=== PATIENT | female | born 1965 | race Caucasian/White ===

== ENCOUNTER 2023-09-28 12:34 | Observation (INO) | payer OTHER, SELFPAY ==
[2023-09-28] VITALS (12 sets, daily range): BP systolic 123–163; BP diastolic 64–94; PULSE 86–107; RESP 17–33; TEMP 35.6–37.6; O2SAT 86–93; BMI 25.8; BMI 30.9
--- NOTE | 2023-09-28 13:40 | CRLHL7_ITS ---
For Patients: As a result of the Cures Act, medical imaging exams and procedure reports are released immediately into your electronic medical record. You may view this report before your referring provider. If you have questions, please contact your health care provider. INDICATION: Dyspnea. TECHNIQUE: Chest radiographs, two views. COMPARISON: Chest radiographs 06/23/2012. FINDINGS: Lines/Tubes/Devices: None. Mediastinum: Normal cardiac silhouette. Lungs: No focal consolidation. Airways: The trachea remains midline. Pleura: No pleural effusions or pneumothorax. Bones: No acute osseous abnormalities. Mild degenerative changes of the thoracic spine. Upper Abdomen: Unremarkable. IMPRESSION: No acute cardiopulmonary process. Dictated by Ken Dupont MD @ 09/28/2023 2:32:17 PM (Electronically Signed)
--- OUTSIDE RECORDS SUMMARY | 2023-09-28 13:52 | XMS_ITS | Referral Summary ---
Author Name Unknown Organization [facility] Address [address] [place] [address] Care Team Providers Care Communication And Outreach Manager Name Role Phone Elsewhere, Pcp Primary Care Provider Unavailabl e Source Comments Patient records contain information from all sites at [facility]. For routine questions regarding patient records, call [phone] during business hours, M-F 8:00 AM - 5:00 PM Central Time. Record requests for emergency care only can be directed to [phone] at any time.[facility] Allergies Active Allergy Reactions Criticality Noted Date Comments Hydrocodone-Acetaminophen Itching 08/29/2011 Medications No known medications Active Problems Problem Noted Date Diagnosed Date Depression Major Recurrent Full Remission 2014 Overview: Depression Major Recurrent Full Remission Dependence Drug Opioid 03/20/2015 Overview: Opioid dependence with pain contract Chronic Obstructive Pulmonary Disease 05/04/2012 Overview: COPD [Chronic obstructive pulmonary disease] Immunizations Name Administration Dates Next Due Tdap 10/05/2013 Social History Tobacco Use Types Packs/Day Years Used Date Smoking Tobacco: Every Day Smokeless Tobacco: Never Tobacco Cessation:Ready to Q uit: Not Asked; Counseling Given: Not Answered Nutrition Answer Date Recorded Nutrition: EVOO Fat Source Unknown 05/14 Nutrition: Servings of Fruits/Vegetables per Day Not on file 05/14/2022 Dental Answer Date Recorded Dental: Regular Dentist Unknown 05/14/20 Sex and Gender Information Value Date Recorded Sex Assigned at Not on file Gender Identity Not on file Sexual Orientation Not on file Last Filed Vital Signs Vital Sign Reading Time Taken Comments Blood Pressure 129/86 05/14/2022 1:44 PM CDT Pulse 99 05/14/2022 1:44 PM CDT Temperature 36.7 ??C (98.1 ??F) 05/14/2022 1:44 PM CD T Respiratory Rate 20 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
--- OUTSIDE RECORDS SUMMARY | 2023-09-28 13:52 | XMS_ITS | Clinical Summary ---
Author Name Unknown Organization [facility] Address [address] [place] [address] Care Team Providers Care Joiner Name Role Phone Elsewhere, Pcp Primary Care Provider Unavailabl e Source Comments Patient records contain information from all sites at [facility]. For routine questions regarding patient records, call [phone] during business hours, M-F 8:00 AM - 5:00 PM Central Time. 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 Oxygen Saturation - - Inhaled Oxygen Concentration - - Weight 88 kg (194 lb 0.1 oz) 05/14/2022 1:44 PM CDT Height 168 cm (5' 6.14) 05/14/2022 1:44 PM CDT Body Mass Index 31.18 05/14/2022 1:44 PM CDT Plan of Treatment Health Maintenance Due Date Last Done Comments CT Colonography 1967 Cologuard 1967 Colonoscopy 1967 Colorectal Cancer Screening 1967 Depression Monitoring (PHQ-9) 1967 FIT 1967 HIV Screening 1967 Hepatitis B Vaccines (1 of 3 - 3-dose series) 1967 Hepatitis C Screening 1967 Tobacco Cessation counseling 1967 COVID-19 Vaccine (#1) 1967 Pneumococcal vaccine (0-64 y ears) (1 of 2 - PCV) 1973 Mammogram 01/30/2015 01/30/2014, 12/06, 03/02/2011 Lipid (Cholesterol) Screening 12/27/2016 12/28/2011 Zoster Vaccines (1 of 2) 2017 Fasting Glucose for Diabetes Screening 10/19/2017 10/19/2014, 10/16/2014, 07/23/2014 Influenza Vaccine (#1) 2023 DTaP,Tdap,and Td Vaccines (2 - Td or Tdap) 10/05/2023 10/05/2013 Care Teams Joiner Relationship Specialty Start Date End Date Elsewhere, Pcp PCP - General Internal Medicine 05/14/22
--- OUTSIDE RECORDS SUMMARY | 2023-09-28 13:52 | XMS_ITS | Clinical Summary ---
Author Name Unknown Organization [facility] Address [place], [place] [address] Care Team Providers Care Falafel Cart Cook Name Role Phone Pcp, No Primary Care Provider Unavailabl e Allergies Active Allergy Reactions Criticality Noted Date Comments Hydrocodone-Acetaminophen Itching 01/04/2015 Medications Medication Sig Dispensed Refills Start Date End Date Status multivitamin (MVI) tablet Take 1 tablet by mouth once daily. 0 09/30/2017 Active cyanocobalamin (VITAMIN B-12) 1,000 mcg tablet Take 1 tablet by mouth once daily. 0 09/30/2017 Active Active Problems Problem Noted Date Diagnosed Date Ganglion cyst of left foot 04/20/2017 Tobacco use disorder 01/05/2015 Depression 01/05/2015 Suicidal ideation 01/05/2015 Leukocytosis 01/05/2015 Chronic neck pain 01/05/2015 Overview: Pt describes that she has a bulging disc RLS (restless legs syndrome) 01/05/2015 Chronic, continuous use of opioids 01/05/2015 Asthma 01/05/2015 S/P hysterectomy 01/05/2015 Major depressive disorder, s joe episode, severe, without mention of psychotic behavior 01/05/2015 Family History Medical History Relation Name Comments Diabetes Maternal Grandfather Diabetes Mother Diabetes Sister 1 Donna Diabetes Sister 2 Stefany Relation Name Status Comments Father Maternal Grandfather Mother Sister 1 Donna Alive Sister 2 Stefany Alive Sister 3 Alive Sister 4 Alive Social History Tobacco Use Types Packs/Day Years Used Date Smoking Tobacco: Every Day Cigarettes 1 15 Smokeless Tobacco: Never Tobacco Cessation:Ready to Q uit: No; Counseling Given: Yes Comments:patient is cutting back, taking wellbutrin Alcohol Use Standard Drinks/Week Comments Yes 0 (1 standard drink = 0.6 oz pur e alcohol) rare Sex and Gender Information Value Date Recorded Sex Assigned at Not on file Gender Identity Not on file Sexual Orientation Not on file Obstetrics History Last Filed Vital Signs Vital Sign Reading Time Taken Comments Blood Pressure 104/74 11/12/2017 12:17 PM [employer] Pulse 88 11/12/2017 12:17 PM [employer] Temperature 36.7 ??C (98.1 ??F) 11/12/2017 1 2:17 PM [employer] Respiratory Rate 20 10/08/2016 10:3 6 AM [employer] Oxygen Saturation 100% 11/12/2017 12: 17 PM [employer] Inhaled Oxygen Concentration - - Weight 76.1 kg (167 lb 12.8 oz) 018 12:17 PM [employer] Height 169 cm (5' 6.54) 11/12/2017 12: 17 PM [facility] [employer] Body Mass Index 26.65 11/12/2017 12:17 PM [facility] [employer] Plan of Treatment Health Maintenance Due Date Last Done Comments COVID-19 vaccine series (#1) 1967 Tdap 1978 HIV for age 15-65 1982 Hepatitis C screening for age 18-79 1985 Tetanus booster 1987 Pap test for age 21-65 01/03/1988 Colonoscopy through age 75 01/03/2012 Lipids for age 45-75 01/03/2012 Mammogram for age 45-75 01/03/2012 Zoster (shingles) series for age 50+ (1 of 2) 2017 Depression screening for age 12+ 09/30/2018 09/30/2017, 10/08/2016, 07/15/2016, Additional history exists BMI (ht and wt on same day) for age 18+ 11/12/2018 11/12/2017, 10/22/2017, 10/04/2017, Additional history exists Influenza for age 50-64 05/07/2023 Pneumococcal series for age 6-64 Aged Out No longer eligible based on patient's age to complete this topic Advance Directives Latest Code Status on File Code Status Date Activated Date Inactivated Comments Full Code 01/04/2015 10:06 PM 01/05/2015 10:26 PM Care Teams Falafel Cart Cook Relationship Specialty Start Date End Date Pcp, No . PCP - General 10/15/17
--- OUTSIDE RECORDS SUMMARY | 2023-09-28 13:52 | XMS_ITS ---
Author Name Unknown Organization [facility] Address [address] [place] [address] Care Team Providers Care Proposal Manager Writer Name Role Phone Unavailable Unavailable Unavailable Surgery Details Not on file Complications Check Surgery Details section. Procedure Estimated Blood Loss Check Surgery Details section. Procedure Findings Check Surgery Details section. Procedure Specimens Taken Check Surgery Details section.
[2023-09-28] MEDS: predniSONE 10 MG TABLET 50 MG PO (13:54)
[2023-09-28] MEDS: IPRAT-ALBUT 0.5-2.5 MG/3 ML NEB 1 NEB IH ×3 (13:54→19:55)
[2023-09-28 14:25] LABS: Lactate* 1.1 mmol/L (0.5-1.9)
[2023-09-28 14:28] LABS: Basophils Absolute Auto 0.02 K/uL (0.00-0.30); Basophils Percent Auto 0.3 % (0.0-3.0); Eosinophils Absolute Auto 0.06 K/uL (0.00-0.50); Eosinophils Percent Auto 0.8 % (0.0-7.0); Hematocrit 45.6 % (33.0-51.0); Hemoglobin* 14.5 gm/dL (12.0-16.0); Immature Granulocytes Abs Auto 0.02 K/uL (0.00-0.30); Immature Granulocytes Pct Auto 0.3 %; Lymphocytes Absolute Auto 2.56 K/uL (0.90-2.90); Lymphocytes Percent Auto 32.6 % (20-44); Mean Corpuscular HGB Conc 32 gm/dL (32-36); Mean Corpuscular Hemoglobin 30 pg (26-34); Mean Corpuscular Volume 94 fL (80-100); Monocytes Percent Auto 9.4 % (0.0-11.0); Neutrophils Absolute Auto 4.45 K/uL (1.7-7.0); Neutrophils Percent Auto 56.6 % (42.0-72.0); Platelet Count* 350 K/uL (140-440); RDW Coefficient of Variation % 13.2 % (11.5-15.5); Red Blood Count 4.86 m/uL (4.00-5.20); White Blood Count* 7.85 K/uL (4.50-11.00)
--- NOTE | 2023-09-28 14:35 | ED.GENADULT ---
HPI - General Adult General Chief complaint: Shortness of Breath/Dyspnea Stated complaint: Short of breath Time Seen by Provider: 09/28/23 13:34 Source: patient Mode of arrival: ambulatory Limitations: no limitations History of Present Illness HPI narrative: 58-year-old female coming in today presenting with shortness of breath. She states she is having a hard time breathing for the last 4 days. She denies fevers or chills. No nausea or vomiting. She has a cough that is nonproductive. Patient tells me that she was diagnosed with COPD many years ago but that she has been fine without any treatment for quite some time. She does have albuterol nebs at home. She has taken some over the last 4 days and they do provide some help. She does smoke a pack of cigarettes per day. Related Data Home Medications Medication Instructions Recorded Confirmed No Known Home Medications 09/28/23 09/28/23 Allergies Allergy/AdvReac Type Severity Reaction Status Date / Time No Known Drug Allergies Allergy Verified 09/28/23 12:50 Review of Systems Status of ROS: Reports: 10 or more systems reviewed and unremarkable except as noted in History and below PFSH PFS Social History Smoking Status: Heavy tobacco smoker What tobacco products do you use: cigarettes Smoking packs per day: 1 Smoking cigarettes per day: 20.0 Do you use any of these nicotine containing products: None Second hand tobacco smoke exposure: No How often do you have a drink containing alcohol: monthly or less AUDIT-C Alcohol total score: 1 Non-prescribed substance use: denies use service: No Exam Narrative: Exam Narrative: Well-nourished well-developed patient in mild respiratory distress. Pursed lips breathing Alert and oriented. Answers questions appropriately. Mood and affect are appropriate. Thoughts are goal oriented and rational. No tangential or magical thinking noted. Patient cannot complete a full sentence without needing to catch her breath. Smells heavily of tobacco. HEENT: Normocephalic atraumatic. Pupils are equally round reactive to light. Extraocular muscles are intact. Conjunctivae are moist without any icterus noted. Moist mucous membranes. Posterior pharynx is normal. Neck is soft without any lymphadenopathy or thyromegaly. No masses are appreciated. Cardiovascular: Heart is regular rate and rhythm S1 and S2 are present without any murmurs. Lungs: Significantly decreased breath sounds bilaterally with bilateral wheezing. Abdomen: Soft with normal bowel sounds. Extremities: Bilateral lower extremities are without edema. Skin: Well perfused without any obvious rashes. Const: Vital Signs, click to edit/add: Vital Signs - 24 hr 09/28/23 12:45 09/28/23 13:55 09/28/23 14:00 Temperature 96.0 F L 97.0 F L Pulse Rate [Pulse Oximeter] 103 H 96 Respiratory Rate 20 24 Blood Pressure [Ri ght Upper Arm] 123/71 147/91 H Pulse Oximetry 93 93 93 Oxygen Delivery Me thod Room Air Room Air Oxygen Flow Rate 09/28/23 15:31 09/28/23 15:55 Temperature 98.0 F Pulse Rate [Pulse Oximeter] 89 Respiratory Rate 24 Blood Pressure [Ri ght Upper Arm] 163/94 H Pulse Oximetry 89 91 Oxygen Delivery Me thod Room Air Nasal Cannula Oxygen Flow Rate 0.5 Course Course ED Course: We proceeded with a DuoNeb x2 and oral prednisone, which did provide her some relief. Labs are unremarkable. EKG, read by me, shows normal sinus rhythm with a pulse of 87. Chest x-ray, read by me, does not show any acute pathology. Triple swab is negative. Vital Signs Vital signs: Initial Vital Signs Temperature 96.0 F L 09/28/23 12:45 Temperature Source Temporal Artery Scan 09/28/23 12:45 Pulse Rate 103 H 09/28/23 12:45 Pulse Rhythm Regular 09/28/23 12:45 Respiratory Rate 20 09/28/23 12:45 Blood Pressure 123/71 09/28/23 12:45 Blood Pressure Mean 88 09/28/23 12:45 Blood Pressure Position Sitting 09/28/23 12:45 Pulse Oximetry 93 09/28/23 12:45 Oxygen Delivery Method Room Air 09/28/23 12:45 Vital Signs Temperature 96.0 F L 09/28/23 12:45 Pulse Rate 103 H 09/28/23 12:45 Respiratory Rate 20 09/28/23 12:45 Blood Pressure 123/71 09/28/23 12:45 Pulse Oximetry 93 09/28/23 12:45 Oxygen Delivery Method Room Air 09/28/23 12:45 Temperature 98.0 F 09/28/23 15:31 Pulse Rate 89 09/28/23 15:31 Respiratory Rate 24 01/23/24 15:31 Blood Pressure 163/94 H 09/28/23 15:31 Pulse Oximetry 91 09/28/23 15:55 Oxygen Delivery Method Nasal Cannula 09/28/23 15:55 Oxygen Flow Rate 0.5 09/28/23 15:55 Medications Administered Medications: Discontinued Medications Generic Name Dose Route Start Last Admin Trade Name Kishanq PRN Reason Stop Dose Admin Albuterol/Ipratropium 1 [facility] 09/28/23 13:40 09/28/23 13:54 Iprat-Albut 0.5-2.5 Mg/3 Ml [facility] 09/28/23 13:41 1 neb ONCE ONE Administration Albuterol/Ipratropium 1 [facility] 09/28/23 14:39 09/28/23 15:05 Iprat-Albut 0.5-2.5 Mg/3 Ml [facility] 09/28/23 14:40 1 neb ONCE ONE Administration Prednisone 50 mg 09/28/23 13:40 09/28/23 13:54 Prednisone 10 Mg Tablet PO 09/28/23 13:41 50 mg ONCE ONE Administration Medical Decision Making MDM Narrative Medical decision making narrative: 58-year-old female, COPD exacerbation with hypoxia. Patient will be admitted for further management. Medical Records Medical records reviewed: Yes I reviewed the patient's medical records Lab Data Lab results reviewed: Yes I reviewed the patient's lab results Labs: Lab Results 09/28/23 09/28/23 Range/Units 13:55 Unknown WBC 7.85 (4.50-11.00) K/uL RBC 4.86 (4.00-5.20) m/uL Hgb 14.5 (12.0-16.0) gm/dL Hct 45.6 (33.0-51.0) % MCV 94 (80-100) fL MCH 30 (26-34) pg MCHC 32 (32-36) gm/dL RDW Coeff of Aracelis 13.2 (11.5-15.5) % Plt Count 350 (140-440) K/uL Neut % (Auto) 56.6 (42.0-72.0) % Lymph % (Auto) 32.6 (20-44) % Haakon % (Auto) 9.4 (0.0-11.0) % Eos % (Auto) 0.8 (0.0-7.0) % Baso % (Auto) 0.3 (0.0-3.0) % Neut # (Auto) 4.45 (1.7-7.0) K/uL Lymph # (Auto) 2.56 (0.90-2.90) K/uL Haakon # (Auto) 0.70 (0.00-0.90) K/UL Eos # (Auto) 0.06 (0.00-0.50) K/uL Baso # (Auto) 0.02 (0.00-0.30) K/uL Abs Immat Gran (auto) 0.02 (0.00-0.30) K/uL Imm/Tot Granulo (auto) 0.3 % D-Dimer Quant (PE/DVT) 0.47 (0.00-0.50) ug/ml Sodium 140 (135-149) mmol/L Potassium 4.1 (3.6-5.1) mmol/L Chloride 105 (96-114) mmol/L Carbon Dioxide 26 (20-32) mmol/L Anion Gap 9 (7-15) mEq/L BUN 14 (7-30) mg/dL Creatinine 0.7 (0.5-1.5) mg/dL Estimated Creat Clear 84.01 Estimated GFR 101 ml/min Glucose 98 (60-115) mg/dL Lactate 1.1 (0.5-1.9) mmol/L Calcium 9.1 (8.4-10.6) mg/dL Troponin I < 0.01 L (0.01-0.04) ng/mL C-Reactive Protein 0.9 (0.5-1.0) mg/dL SARS-CoV-2 (PCR) Negative SARS-CoV-2 (Negative) Influenza Type A (PCR) Negative PCR FLU A (Negative) Influenza Type B (PCR) Negative PCR FLU B (Negative) RSV (PCR) Negative PCR RSV (Negative) Imaging Data Chest x-ray: Attestation: I have reviewed the pertinent imaging results. Radiologist's impression: Chest radiographs, two views. COMPARISON: Chest radiographs 06/23/2012. FINDINGS: Lines/Tubes/Devices: None. Mediastinum: Normal cardiac silhouette. Lungs: No focal consolidation. Airways: The trachea remains midline. Pleura: No pleural effusions or pneumothorax. Bones: No acute osseous abnormalities. Mild degenerative changes of the thoracic spine. Upper Abdomen: Unremarkable. IMPRESSION: No acute cardiopulmonary process. ECG Data Attestation: I personally reviewed and interpreted this ECG as follows: Discharge Plan Discharge Clinical Impression: Acute exacerbation of chronic obstructive pulmonary disease Patient Disposition: Admitted As Observation Condition: Stable
[2023-09-28 14:42] LABS: Slide Review Reflex No
[2023-09-28 14:59] LABS: Chloride* 105 mmol/L (96-114); Potassium* 4.1 mmol/L (3.6-5.1); Sodium* 140 mmol/L (135-149)
[2023-09-28 15:02] LABS: Creatinine* 0.7 mg/dL (0.5-1.5); Est. Creatinine Clearance* 84.01; Estimated Glomerular Filt Rate 101 ml/min
[2023-09-28 15:03] LABS: Anion Gap 9 mEq/L (7-15); Blood Urea Nitrogen* 14 mg/dL (7-30); Calcium* 9.1 mg/dL (8.4-10.6); Carbon Dioxide* 26 mmol/L (20-32); Glucose* 98 mg/dL (60-115)
[2023-09-28 15:05] LABS: C Reactive Protein* 0.9 mg/dL (0.5-1.0)
[2023-09-28 15:07] LABS: PCR FLU A Negative PCR FLU A (Negative); PCR FLU B Negative PCR FLU B (Negative); PCR RSV Negative PCR RSV (Negative); SARS PCR* Negative SARS-CoV-2 (Negative)
[2023-09-28 15:16] LABS: Troponin I* < 0.01 ng/mL (0.01-0.04)
--- NOTE | 2023-09-28 15:32 | PC.NURSE ---
Wilfrido complete, pt states she was feeling a bit better following neb but now i feel worse again.
[2023-09-28 15:57] LABS: D Dimer Quantitative* 0.47 ug/ml (0.00-0.50)
--- NOTE | 2023-09-28 16:04 | ED.NURSE ---
Placed oxgen on patient per MD orders. Sats were 88-90 with room air, on 0.5L NC sats to 91-92%, with new goal stated to be 88-90, oxygen was removed.
--- NOTE | 2023-09-28 16:29 | ED.NURSE ---
patient is waiting in the bed to be admitted to M/S. patient would prefer to go home but understands. resting in the bed until transition.
--- NOTE | 2023-09-28 17:22 | ED.NURSE ---
given report to Danica Briones who will resume care of the patient on M/S. plan to admit to room 255 via ambulatory.
--- NOTE | 2023-09-28 19:43 | PM.IMHP1 ---
Hospitalist- H&P: HPI History of Present Illness Time Seen by Provider: 16:25 Date Seen: 09/28/23 Chief complaint: Short of breath Narrative: Sara Hernandez is a 58 year old female with a history of COPD who has not seen a doctor for many years who has been having difficulty breathing for the last 4 days. She started coughing on Wednesday and took 3 at home COVID tests that were all negative. She works at [employer] and called in sick on Wednesday and today room because she felt very short of breath. She smokes a pack of cigarettes per day and has done so since the age of 16, but has been smoking a few less over the last few days because of the shortness of breath. For the last 4 days she has been borrowing her son's albuterol nebs, she has taken 1 a day and has gotten some relief with each 1. She was satting 88-89% on room air in the emergency department prior to getting a neb and prednisone orally. She denies chest pain. She has not had any fevers or chills. She complains of a intermittent low back cramping over the past month. She has no pain at this time. It usually happens when she bends over. She denies any hematuria or other urinary symptoms. Review of Systems Status of ROS: Reports: 10 or more systems reviewed and unremarkable except as noted in History and below [facility] Medical History (Updated 09/28/23 @ 21:34 by Sujey Barraza MD) Opioid dependence ?F11.20 - Opioid dependence, uncomplicated (ICD-10) Ganglion cyst of left foot ?M67.472 - Ganglion, left ankle and foot (ICD-10) RLS (restless legs syndrome) ?G25.81 - Restless legs syndrome (ICD-10) COPD (chronic obstructive pulmonary disease) ?J44.9 - Chronic obstructive pulmonary disease, unspecified (ICD-10) Asthma ?J45.909 - Unspecified asthma, uncomplicated (ICD-10) Chronic neck pain ?M54.2 - Cervicalgia (ICD-10) ?G89.29 - Other chronic pain (ICD-10) Leukocytosis ?D72.829 - Elevated white blood cell count, unspecified (ICD-10) Suicidal ideation ?R45.851 - Suicidal ideations (ICD-10) Depression ?F32.A - Depression, unspecified (ICD-10) Tobacco use disorder ?F17.200 - Nicotine dependence, unspecified, uncomplicated (ICD-10) Surgical History (Updated 09/28/23 @ 18:18 by Sujey Barraza MD) H/O thumb surgery ?Z98.890 - Other specified postprocedural states (ICD-10) H/O: hysterectomy (~02/18/02) ?Z90.710 - Acquired absence of both cervix and uterus (ICD-10) Family History (Updated 09/28/23 @ 18:18 by Sujey Barraza MD) Maternal Grandfather Diabetes Mother Diabetes Sister Diabetes Sister Diabetes Father DVT (deep venous thrombosis) Social History (Updated 09/28/23 @ 21:24 by Sujey Barraza MD) Narrative: Smokes a pack of cigarettes per day and has done so since the age of 16. Denies alcohol use. Denies recreational drug use. What is your current living situation?: I presently have a place to live Problems where you live: no known problems Problems where you live details: N/A In the past 12 months, utilities in danger of being shut off: no In past 12 months, lack of transportation kept you from medical appts, meetings, work, or getting things needed for daily living: no In the past 12 mos, have been you worried that your food would run out before you had money to buy more?: never true In the past 12 mos, the food you bought just didn't last and you didn't have money to buy more?: never true Highest level of school completed/degree received: high school graduate Smoking Status: Current every day smoker What tobacco products do you use: cigarettes Smoking packs per day: 1 Smoking cigarettes per day: 20.0 Do you use any of these nicotine containing products: None Second hand tobacco smoke exposure: No How often do you have a drink containing alcohol: monthly or less AUDIT-C Alcohol total score: 1 Non-prescribed substance use: denies use Caffeine: Yes How often does anyone, including family, friends and others, physically hurt you: never How often does anyone, including family, friends and others, insult or talk down to you: never How often does anyone, including family, friends and others, threaten you with harm: never How often does anyone, including family, friends and others, scream or curse at you: never service: No Meds Home Medications and Allergies Home Medications Medication Instructions Recorded Confirmed Type No Known Home Medications 09/28/23 09/28/23 History Allergies Allergy/AdvReac Type Severity Reaction Status Date / Time No Known Drug Allergies Allergy Verified 09/28/23 12:50 Exam Narrative: Exam Narrative: General: No acute distress. No respiratory distress. Awake alert oriented x3. HEENT: Normocephalic atraumatic, pupils equally round and reactive to light and accommodation. Oropharynx clear. Mucous membranes are moist. No cervical lymphadenopathy, thyromegaly or carotid bruits. No JVD. Cardiovascular: Mildly tachycardic, regular. No murmurs, gallops, or rubs. Chest: No increased work of breathing. Tight, scattered expiratory wheezes, no crackles. Abdomen: Bowel sounds present. Soft, nondistended, nontender. No hepatosplenomegaly or masses. Extremities: No edema, no cyanosis or clubbing. Skin: No jaundice, no pallor, no rashes. Const: Vital Signs, click to edit/add: Vital Signs - 24 hr 09/28/23 12:45 09/28/23 13:55 09/28/23 14:00 Temperature 96.0 F L 97.0 F L Pulse Rate [Pulse Oximeter] 103 H 96 Pulse Rate [Right Pulse Oximeter] Respiratory Rate 20 24 Blood Pressure [Le ft Arm] Blood Pressure [Ri ght Upper Arm] 123/71 147/91 H Pulse Oximetry 93 93 93 Oxygen Delivery Me thod Room Air Room Air Oxygen Flow Rate 09/28/23 15:31 09/28/23 15:55 09/28/23 16:05 Temperature 98.0 F Pulse Rate [Pulse Oximeter] 89 89 Pulse Rate [Right Pulse Oximeter] Respiratory Rate 24 17 Blood Pressure [Le ft Arm] Blood Pressure [Ri ght Upper Arm] 163/94 H Pulse Oximetry 89 91 92 Oxygen Delivery Me thod Room Air Nasal Cannula Room Air Oxygen Flow Rate 0.5 09/28/23 16:35 09/28/23 17:05 09/28/23 17:20 Temperature Pulse Rate [Pulse Oximeter] 86 88 90 Pulse Rate [Right Pulse Oximeter] Respiratory Rate 33 H 30 H 21 Blood Pressure [Le ft Arm] Blood Pressure [Ri ght Upper Arm] Pulse Oximetry 86 L 89 91 Oxygen Delivery Me thod Room Air Room Air Room Air Oxygen Flow Rate 09/28/23 18:01 Temperature 99.6 F Pulse Rate [Pulse Oximeter] Pulse Rate [Right Pulse Oximeter] 101 H Respiratory Rate 22 Blood Pressure [Le ft Arm] 144/79 H Blood Pressure [Ri ght Upper Arm] Pulse Oximetry 93 Oxygen Delivery Me thod Room Air Oxygen Flow Rate Hospitalist - H&P: Result Labs Labs: Short CBC 09/28/23 Range/Units 13:55 WBC 7.85 (4.50-11.00) K/uL Hgb 14.5 (12.0-16.0) gm/dL Hct 45.6 (33.0-51.0) % Plt Count 350 (140-440) K/uL BMP 09/28/23 13:55 Sodium 140 Potassium 4.1 Chloride 105 Carbon Dioxide 26 BUN 14 Creatinine 0.7 Glucose 98 Calcium 9.1 Cardiac Enzymes 09/28/23 Range/Units 13:55 Troponin I < 0.01 L (0.01-0.04) ng/mL Ordering Physician: Arabella Ferreira M.D. Date of Service: 09/28/23 Procedure(s): XR chest 2V Accession Number(s): [id number] cc: Arabella Ferreira M.D.; Provider,Not a Local~ For Patients: As a result of the Century Cures Act, medical imaging exams and procedure reports are released immediately into your electronic medical record. You may view this report before your referring provider. If you have questions, please contact your health care provider. INDICATION: Dyspnea. TECHNIQUE: Chest radiographs, two views. COMPARISON: Chest radiographs 06/23/2012. FINDINGS: Lines/Tubes/Devices: None. Mediastinum: Normal cardiac silhouette. Lungs: No focal consolidation. Airways: The trachea remains midline. Pleura: No pleural effusions or pneumothorax. Bones: No acute osseous abnormalities. Mild degenerative changes of the thoracic spine. Upper Abdomen: Unremarkable. IMPRESSION: No acute cardiopulmonary process. Dictated by Ken Dupont MD @ 09/28/2023 2:32:17 PM (Electronically Signed) Assessment and Plan Assessment and plan (1) Acute respiratory distress: Problem comment: Secondary to COPD exacerbation. She is not hypoxic. This is improving now after getting nebs and oral prednisone. I anticipate she will be able to discharge home in the morning. Status: Acute (2) Acute exacerbation of chronic obstructive pulmonary disease: Problem comment: Treat as above. Status: Acute (3) COPD (chronic obstructive pulmonary disease): Status: Acute (4) Asthma: Status: Acute (5) Tobacco use disorder: Problem comment: 1ppd - placed nicotine patch Status: Chronic
[2023-09-28] MEDS: NICOTINE 21 MG PATCH 1 PATCH TRANSDERMA (19:55)
[2023-09-28] MEDS: SODIUM CHLORIDE 0.9 % (FLUSH) 10 ML SYRINGE 5 ML IVF (19:57)
[2023-09-28] MEDS: ACETAMINOPHEN 325 MG TABLET PO (22:34)
--- NOTE | 2023-09-28 22:41 | PC.NURSE ---
End of Shift: Patient admitted to 255. O2 sats 88-93% on room air. Shortness of breath with activity. Headache 5/10 and some pain with coughing, PRN Tylenol given x1. Tolerating regular diet with no nausea. Up independently in room.
[2023-09-29 03:00] VITALS: PULSE 91; RESP 20; O2SAT 90
[2023-09-29] MEDS: IPRAT-ALBUT 0.5-2.5 MG/3 ML NEB 1 NEB IH (05:58)
--- NOTE | 2023-09-29 06:44 | PC.NURSE ---
Shift note: O2 sats on room air 88-91%, frequent cough, some SOB with exertion
[2023-09-29] MEDS: predniSONE 20 MG TABLET 40 MG PO (07:50)
[2023-09-29 07:51] VITALS: BP 142/78; PULSE 88; RESP 22; TEMP 36.7; O2SAT 90
--- NOTE | 2023-09-29 10:55 | PC.NURSE ---
Discharge: Patient pleasant and cooperative. Patient vitally stable, lungs course/diminished, BS WNL, NO IV. Patient independent in room and rates chest pain/pressure 4/10. Patient tolerating regular diet and urinating. Patient on RA with sats in lo 90's. Patient removed nicotine patch from L shoulder upon discharge. Nicotine patch disposed of in Nicotine bin. Patient signed belongings sheet a discharge form. Patient left the floor by foot to home with belongings at 1051.
--- NOTE | 2023-09-29 12:28 | PM.DS1 ---
DS: Providers Provider Date Seen: 09/29/23 Date of admission: 09/28/23 17:30 Primary care physician: Not a Local Provider Admitting Clinician: Sujey Barraza MD Attending Physician on discharge: Altaf Henderson MD Date of Discharge: 09/29/23 DS: Diagnosis Discharge Diagnosis (1) Acute exacerbation of chronic obstructive pulmonary disease: Status: Acute Problem details: Treated with prednisone and bronchodilators. Recommend outpatient evaluation treatment to start guideline directed medical therapy (2) Tobacco use disorder: Status: Chronic Problem details: 1ppd - placed nicotine patch (3) Asthma: Status: Acute Problem details: Longstanding diagnosis. Recommend spirometry to evaluate (4) Hypoxic respiratory failure: Status: Acute Problem details: On admission she had hypoxia but has been maintaining O2 sats around 90% on room air since admission. DS: Summary Hospital Course Hospital Course: 58-year-old female admitted to the hospital with a 4 day history of coughing and dyspnea. Has previous history of asthma as well as COPD. She is a long-time smoker. A time of admission she was felt to have a COPD exacerbation. Chest x-ray did not show any obvious infiltrates. She had testing for influenza COVID and RSV which were negative. She was hypoxic in the emergency department She was treated with inhaled bronchodilators and prednisone. She reports feeling much better today. She is anxious to go home. Patient does not have insurance and cannot afford appropriate guideline directed medical therapy at this time. She is planning on applying for medical insurance to help with costs of chronic medications. She is encouraged to stop smoking and nicotine patches prescribed. Prednisone and DuoNebs are prescribed. I urged her to get outpatient followup to establish care and initiate appropriate evaluation and treatment for chronic COPD/asthma Status at Discharge Functional status at discharge: independent ambulation Overall status at discharge: patient is progressing back to baseline Time Spent with Patient Time attestation: Total time spent providing and/or coordinating discharge services: 35 minutes Time spent: Greater than 30 minutes Exam Narrative: Exam Narrative: She is alert and appears in no distress. Respirations with diminished breath sounds were all lung raymundo. She has prolonged expiratory phase. No significant wheezing rales or crackles noted. Cardiovascular: S1, S2, regular rate and rhythm. Const: Vital Signs, click to edit/add: Vital Signs - 24 hr 09/28/23 12:45 09/28/23 13:55 09/28/23 14:00 Temperature 96.0 F L 97.0 F L Pulse Rate [Pulse Oximeter] 103 H 96 Pulse Rate [Right Pulse Oximeter] Respiratory Rate 20 24 Blood Pressure [Le ft Arm] Blood Pressure [Ri ght Arm] Blood Pressure [Ri ght Upper Arm] 123/71 147/91 H Pulse Oximetry 93 93 93 Oxygen Delivery Me thod Room Air Room Air Oxygen Flow Rate 09/28/23 15:31 09/28/23 15:55 09/28/23 16:05 Temperature 98.0 F Pulse Rate [Pulse Oximeter] 89 89 Pulse Rate [Right Pulse Oximeter] Respiratory Rate 24 17 Blood Pressure [Le ft Arm] Blood Pressure [Ri ght Arm] Blood Pressure [Ri ght Upper Arm] 163/94 H Pulse Oximetry 89 91 92 Oxygen Delivery Me thod Room Air Nasal Cannula Room Air Oxygen Flow Rate 0.5 09/28/23 16:35 09/28/23 17:05 09/28/23 17:20 Temperature Pulse Rate [Pulse Oximeter] 86 88 90 Pulse Rate [Right Pulse Oximeter] Respiratory Rate 33 H 30 H 21 Blood Pressure [Le ft Arm] Blood Pressure [Ri ght Arm] Blood Pressure [Ri ght Upper Arm] Pulse Oximetry 86 L 89 91 Oxygen Delivery Me thod Room Air Room Air Room Air Oxygen Flow Rate 09/28/23 18:01 09/28/23 18:01 09/28/23 19:00 Temperature 99.6 F 98.7 F Pulse Rate [Pulse Oximeter] Pulse Rate [Right Pulse Oximeter] 101 H 107 H Respiratory Rate 22 24 24 Blood Pressure [Le ft Arm] 144/79 H 156/64 H Blood Pressure [Ri ght Arm] Blood Pressure [Ri ght Upper Arm] Pulse Oximetry 93 90 Oxygen Delivery Me thod Room Air Room Air Oxygen Flow Rate 09/28/23 23:00 09/28/23 23:00 09/28/23 23:00 Temperature 98.5 F Pulse Rate [Pulse Oximeter] Pulse Rate [Right Pulse Oximeter] 90 90 Respiratory Rate 22 22 22 Blood Pressure [Le ft Arm] 127/77 Blood Pressure [Ri ght Arm] Blood Pressure [Ri ght Upper Arm] Pulse Oximetry 90 90 Oxygen Delivery Me thod Room Air Room Air Oxygen Flow Rate 09/29/23 03:00 09/29/23 07:51 09/29/23 07:51 Temperature 98.1 F Pulse Rate [Pulse Oximeter] Pulse Rate [Right Pulse Oximeter] 91 88 88 Respiratory Rate 20 22 22 Blood Pressure [Le ft Arm] Blood Pressure [Ri ght Arm] 142/78 H Blood Pressure [Ri ght Upper Arm] Pulse Oximetry 90 90 Oxygen Delivery Me thod Room Air Room Air Oxygen Flow Rate 09/29/23 07:51 Temperature Pulse Rate [Pulse Oximeter] Pulse Rate [Right Pulse Oximeter] Respiratory Rate 22 Blood Pressure [Le ft Arm] Blood Pressure [Ri ght Arm] Blood Pressure [Ri ght Upper Arm] Pulse Oximetry 90 Oxygen Delivery Me thod Room Air Oxygen Flow Rate Documenting provider has reviewed patient's vital signs: yes DS: Data Data Completed and Pending Labs on day of discharge: Labs from last 24 hours 09/28/23 09/28/23 Unknown 13:55 WBC 7.85 RBC 4.86 Hgb 14.5 Hct 45.6 MCV 94 MCH 30 MCHC 32 RDW Coeff of Aracelis 13.2 Plt Count 350 Neut % (Auto) 56.6 Lymph % (Auto) 32.6 [place] % (Auto) 9.4 Eos % (Auto) 0.8 Baso % (Auto) 0.3 Neut # (Auto) 4.45 Lymph # (Auto) 2.56 [place] # (Auto) 0.70 Eos # (Auto) 0.06 Baso # (Auto) 0.02 Abs Immat Gran (auto) 0.02 Imm/Tot Granulo (auto) 0.3 D-Dimer Quant (PE/DVT) 0.47 Sodium 140 Potassium 4.1 Chloride 105 Carbon Dioxide 26 Anion Gap 9 BUN 14 Creatinine 0.7 Estimated Creat Clear 84.01 Estimated GFR 101 Glucose 98 Lactate 1.1 Calcium 9.1 Troponin I < 0.01 L C-Reactive Protein 0.9 SARS-CoV-2 (PCR) Negative SARS-CoV-2 Influenza Type A (PCR) Negative PCR FLU A Influenza Type B (PCR) Negative PCR FLU B RSV (PCR) Negative PCR RSV Imaging Chest x-ray: My impression: No acute infiltrate Discharge Plan Discharge Disposition: Home, Self-Care Date of Admission: 09/28/23 17:30 Attending Provider on Discharge: Freddie Henderson Primary Care Provider: Provider,Not a Local Condition: Stable Anticipated Discharge Date/Time: 09/29/23 09:18 Discharge Medications: New ipratropium-albuterol 0.5 mg-3 mg(2.5 mg base)/3 mL Solution For Nebulization 3 ml inhalation Q6H PRNQty: 100 0RF nicotine 21 mg/24 hr Patch 24 Hour 1 patch transdermal Q24H Qty: 28 0RF prednisone 20 mg tablet 40 mg PO DAILY Qty: 10 0RF Discharge Orders: Discharge Order (Routine); Ordered 09/29/23 Ordered By: Freddie Henderson Patient Education: Prednisone (By mouth), Nicotine (Absorbed through the skin), Ipratropium/Albuterol (By breathing) Activity Level: Activity as Tolerated Discharge Diet: Regular Follow Up Appointments: Provider,Not a Local [Primary Care Provider] - (follow up at [facility] in [place] in one week ) Uvaldo Gil MD [Staff Physician] - 10/05/23 1:15 pm ([facility] for follow-up.) Forms: [employer] Info Instructions
== END 2023-09-29 10:51 | disposition home or self-care (01) ==
LOC: ED 15:57 → MEDSURG 17:31
PROVIDERS: Admitting Provider Family Medicine; Emergency Provider Family Medicine; Visit Provider Family Medicine
DX: J44.1 Chronic obstructive pulmonary disease with (acute) exacerbation (principal); J44.9 Chronic obstructive pulmonary disease, unspecified; J45.909 Unspecified asthma, uncomplicated; F17.200 Nicotine dependence, unspecified, uncomplicated; J96.91 Respiratory failure, unspecified with hypoxia
CPT/HCPCS: 36415; 71046; 80048; 83605; 84484; 85025; 85379; 86140; 87631; 93005; 94640; 94761; 99284; 99285; A9270; G0378; J7512; S4990